=== PATIENT | male | born 1940 | race Caucasian/White ===

== ENCOUNTER 2020-06-08 10:07 | Outpatient (REF) | payer MEDICARE, SELFPAY | END 2020-06-08 10:08 | disposition home or self-care (01) | LOC: HO.LAB 10:07 | PROVIDERS: PCP Internal Medicine; Visit Provider Internal Medicine | DX: Z20.822 Contact with and (suspected) exposure to COVID-19 (principal) | CPT/HCPCS: 36415; C9803; U0003; U0005 ==

== ENCOUNTER → 2022-06-20 10:18 | Outpatient (BNVA) | payer SELFPAY | PROVIDERS: PCP Internal Medicine; Visit Provider Physician Assistant Medical | DX: Z02.79 Encounter for issue of other medical certificate (principal) ==

== ENCOUNTER 2023-06-21 19:30 | Emergency (ER) | payer MEDICARE, SELFPAY ==
--- NOTE | ~2023-06-21 | CT_ITS ---
EXAMINATION: CT ANGIOGRAM OF THE CHEST WITH AND WITHOUT CONTRAST (CT PULMONARY ANGIOGRAM FOR PE) CLINICAL INFORMATION: Reason for Exam Syncope, elevated D-dimer, R/O PE COMPARISON: None available. TECHNIQUE: Prior to contrast administration, noncontrast localization images were obtained. Subsequently, multidetector volumetric imaging was performed from the thoracic inlet to below the diaphragms following the administration of 80 mL Omnipaque 350 intravenous contrast. No contrast reaction reported Sagittal, coronal, and MIP oblique sagittal reformatted images were obtained on the CT workstation, uploaded to PACS, and reviewed. This CT examination was performed using dose optimization techniques as appropriate, variously including the following: *Automated exposure control *Adjustment of mA and/or kV according to patient size (this includes techniques or standardized protocols for targeted exams where dose is matched to indication/reason for exam; i.e. extremities or head) *Use of iterative reconstruction technique Total exam dose-length product 295 mGy-cm FINDINGS: QUALITY OF STUDY/CONTRAST BOLUS: Satisfactory. PULMONARY ARTERIES: No pulmonary emboli. THORACIC AORTA: No aneurysm. LUNG: There is mild emphysematous changes of both lungs without any acute pneumonic process. Mild atelectatic changes seen in both lung bases. PLEURA: No pleural effusion or pneumothorax. MEDIASTINUM: Normal heart size. No pericardial effusion. No hilar or mediastinal lymphadenopathy. No evidence of septal bowing or right heart strain. CORONARY ARTERY CALCIFICATION: None visualized on this study. CHEST WALL/AXILLA: No axillary or internal mammary lymphadenopathy. OSSEOUS STRUCTURES: Mild degenerative disc changes with ventral spondylosis in mid and lower dorsal spine. No aggressive lytic or sclerotic process seen. UPPER ABDOMEN: Visualized liver, spleen appears unremarkable. No reflux of contrast into the hepatic veins to suggest elevated right heart pressures. CT/CT angio chest PE protocol IMPRESSION: 1. No evidence of PE. 2. No evidence of aortic aneurysm. 3. Mild emphysematous changes in both lungs with bibasilar atelectasis. 4. VTE: negative.
--- NOTE | ~2023-06-21 | CT_ITS ---
EXAMINATION: CT HEAD WITHOUT CONTRAST CLINICAL INFORMATION: Syncope. Head injury. COMPARISON: None. TECHNIQUE: Contiguous axial imaging was performed from the skullbase to vertex without intravenous administration of contrast. This CT examination was performed using dose optimization techniques as appropriate, variously including the following: *Automated exposure control *Adjustment of mA and/or kV according to patient size (this includes techniques or standardized protocols for targeted exams where dose is matched to indication/reason for exam; i.e. extremities or head) *Use of iterative reconstruction technique DLP: 738 mGy-cm. FINDINGS: There is no evidence of acute intracranial hemorrhage or territorial infarction. No abnormal mass effect or midline shift is seen. Holguin to white matter differentiation is well preserved. No extra-axial fluid collections are identified. The ventricles are normal in size. Mild chronic white matter microangiopathic changes noted. The osseous structures and soft tissues are normal. The mastoid air cells and visualized portions of the paranasal sinuses are well aerated. CT/CT head/brain wo IV con IMPRESSION: No acute intracranial hemorrhage or territorial infarction.
[2023-06-21 19:44] VITALS: BP 114/59; BP 147/75; PULSE 71; PULSE 73; RESP 18; TEMP 36.8; O2SAT 98; BMI 29.3
--- NOTE | 2023-06-21 19:54 | ECG_ITS ---
Test Reason : SYNCOPE Blood Pressure : / mmHG Vent. Rate : 075 BPM Atrial Rate : 075 BPM P-R Int : 166 ms QRS Dur : 074 ms QT Int : 380 ms P-R-T Axes : 026 049 051 degrees QTc Int : 424 ms Normal sinus rhythm Low voltage QRS Borderline ECG When compared with ECG of 21-OCT-2019 07:48, No significant change was found Referred By: Mj Lopez Electronically Signed By:Donald Johnson
[2023-06-21 20:05] LABS: MANUAL DIFF FLAG NO
[2023-06-21 20:07] LABS: Basophils Percent Auto 0.4 % (0-2); Eosinophils Absolute Auto 0.3 X10*3/uL (0.0-0.4); Eosinophils Percent Auto 2.9 % (0-4); Hematocrit 49.5 % (42.0-52.0); Hemoglobin 16.7 g/dl (14.0-18.0); Imm Gran Abs Auto 0.05 X10*3/uL (0.00-0.03); Imm Gran Pct Auto 0.5 % (0.0-0.4); Lymphocytes Absolute Auto 0.6 X10*3/uL (1.2-4.9); Lymphocytes Percent Auto 5.9 % (20-40); Mean Corpuscular HGB Conc 33.7 g/dl (31.0-36.0); Mean Corpuscular Hemoglobin 28.5 pg (27.0-33.0); Mean Corpuscular Volume 84.6 fL (80.0-98.0); Mean Platelet Volume 8.8 fL (9.4-12.4); Monocytes Absolute Auto 0.8 X10*3/uL (0.1-1.2); Monocytes Percent Auto 7.4 % (2-11); Neutrophils Absolute Auto 8.6 x10*3/uL (2.0-8.3); Neutrophils Percent Auto 82.9 % (45-73); Platelet Count 196 X10*3/uL (160-400); Red Blood Count 5.85 X10*6/uL (4.60-5.80); Red Cell Distribution Width 12.6 % (11.0-16.0); White Blood Count 10.4 X10*3/uL (4.8-10.8)
[2023-06-21 20:18] VITALS: PULSE 71; O2SAT 98
--- NOTE | 2023-06-21 20:18 | ED_ITS ---
HPI - Syncope General Chief Complaint: Syncope Stated Complaint: Near Syncopal Episode Time Seen by Provider: 06/21/23 19:39 Source: patient Mode of arrival: EMS Limitations: no limitations History of Present Illness HPI narrative: 82-year-old male with no significant past medical history who presents emergency department for evaluation of a syncopal episode. Patient states that he had no food or fluid to drink all day. He was at dinner and states that he was eating food when he started to have a warm sensation at 1 point his noted that the patient was staring off into space and not talking. His head started vomiting and he struck the table with his head and the states that his head bounced several times on the table. Started to tip over in his chair and bystanders and by in standard as needed hold him in his chair to prevent him from falling. The states that the entire episode lasted approximately 10 minutes and occurred at around 18:45 hours. The patient has no memory of passing out. Three had an episode where he was staring off into space without. She states that he was seen at [facility] and spent several hours in the emergency department and was then discharged home. The states that he did not have any follow-up with a hot metal mixer operator or neurologist and did not have any further episodes until today. Patient denied being ill in any way recently. He denied fever, chills, rhinorrhea, sore throat, chest pain, shortness of breath or dyspnea on exertion. States that he was skiing in [facility] [facility] and has been home for approximately 1 1/2 weeks. He states that while he was skiing, he did fall once and did injure his left chest but the pain is significantly better in his resolved. He states that he was walking with his family over the last several days and did have some pain in his right leg which has resolved. He has not had any pain or swelling in his lower extremities. Related Data Allergies Allergy/AdvReac Type Severity Reaction Status Date / Time No Known Allergies Allergy Unverified 01/23/20 15:09 [No Known Allergies*] Review of Systems 2 Review of Systems: Yes all other systems are reviewed and are negative [facility] Past Medical History [facility] Narrative: Social history: He denies tobacco use. He does drink alcohol occasionally he states that he had 1 drink earlier today but no drinks with dinner . He denied drug use. Social History Social History Advance Directives: No Advance Directives Information Provided: No Physical Exam 2 Vital Signs: Vital Signs: Last Vital Signs Temp 98.3 F 06/21/23 19:44 Pulse 82 06/21/23 20:30 Resp 18 06/21/23 19:44 BP 101/65 06/21/23 20:30 Pulse Ox 98 06/21/23 20:18 O2 Del Method Room Air 06/21/23 20:18 BMI result Body Mass Index 29.3 Vital signs were normal. Orthostatic vital signs were normal as well pain Exam General: Awake, alert in no distress Head: Normocephalic, patient has a area of ecchymosis on his forehead and nose from striking the table, these areas are nontender EENT: PERRL, Lids normal, sclera normal, conjunctiva normal, nose normal , ears normal, throat without erythema or exudates Neck: Supple, no adenopathy Lung: breath sounds symmetric, no wheezing, rales or rhonchi Chest: symmetric movement, nontender Heart: regular rate and rhythm, normal S1, S2 no murmurs or rubs Abdomen: soft, non-tender, nondistended, normal bowel sounds Back: no vertebral tenderness, no CVAT Extremities: no deformities, moves all extremities symmetrically. Extremities appear to be symmetric in size with no tenderness palpation over his calf muscles or by muscles. Neuro: Awake, alert, oriented, normal speech, cranial nerves intact, moves all extremities symmetrically Psych: Pleasant, cooperative Medications Administered Discontinued Medications Generic Name Dose Route Start Last Admin Trade Name Jaqui PRN Reason Stop Dose Admin Sodium Chloride 1,000 mls @ 999 mls/hr 06/21/23 20:18 06/21/23 20:31 Ns IV 06/21/23 21:18 999 mls/hr .Q1H1M STA Administration Iohexol 65 ml 06/21/23 22:44 06/21/23 22:45 Iohexol 350 Mg/Ml 100 Ml Infus..Btl IV 06/21/23 22:45 65 ml ONCE ONE Administration Medical Decision Making Medical Decision Making MDM Narrative: 82-year-old male with no significant past medical history who presents emergency department for evaluation of syncopal episode that occurred while he was eating dinner. states the patient was initially staring off into space and then his head dropped to the table and bobbed several times on the table. Patient was then tipping over and needed to be supported in his tear to prevent him from falling out of the chair. Patient states he did feel warm and dizzy prior to his syncopal episode but does not recall any details of the syncope. states that in March of 2023 at an episode where he was staring off into space was seen at [facility] in the emergency department but did not have any further workup after the event. Patient was recently skiing in [place] [facility] [facility] 2 weeks prior and did fall and injure his left chest but he states that the pain is resolved. Patient did complain of right lower extremity pain while he was walking with family but this is also resolved. Vital signs were normal, the patient was not orthostatic. Physical examination was unremarkable except for evidence of facial trauma from striking his head on the table. Differential diagnosis: Includes was not limited to Mart arrhythmia, tachyarrhythmia, vasovagal syncope, seizure, pulmonary embolism, electrolyte abnormality, anemia, alcohol intoxication Following evaluation was ordered: CBC, CMP, troponin, D-dimer, PTT, PT/INR, ethanol level, drug screen, CT scan of the head without IV contrast. 22:29 My interpretation patient's laboratory evaluation is as follows: CBC was normal. CMP was normal except for an elevated BUN of 19 elevated creatinine of 118. Troponin less than 2.7. Ethanol was not detected. Urinalysis and urine drug screen pending. D-dimer was elevated at 495 Twelve EKG was unremarkable CT scan of the brain was unremarkable Given the elevated D-dimer I will get a CT pulmonary angiogram PE protocol to rule out PE as a possible cause of his syncope I will also repeated 3 hour troponin at 23:00 hours At the end of my shift, the patient's care was turned over to my colleague, Dr. Everardo Hendrix Admission/Observation Consideration of admission/observation: Escalation of care including admission/observation considered Lab Data MDM Lab Attestation statement: I reviewed the patient's lab results. 06/21/23 20:00 06/21/23 20:00 Labs: Lab Results 06/21/23 06/21/23 Range/Units 20:00 20:30 WBC 10.4 (4.8-10.8) X10*3/uL RBC 5.85 H (4.60-5.80) X10*6/uL Hgb 16.7 (14.0-18.0) g/dl Hct 49.5 (42.0-52.0) % MCV 84.6 (80.0-98.0) fL MCH 28.5 (27.0-33.0) pg MCHC 33.7 (31.0-36.0) g/dl RDW 12.6 (11.0-16.0) % Plt Count 196 (160-400) X10*3/uL MPV 8.8 L (9.4-12.4) fL Immature Gran % (Auto) 0.5 H (0.0-0.4) % Neut % (Auto) 82.9 H (45-73) % Lymph % (Auto) 5.9 L (20-40) % Maury % (Auto) 7.4 (2-11) % Eos % (Auto) 2.9 (0-4) % Baso % (Auto) 0.4 (0-2) % Lymph # (Auto) 0.6 L (1.2-4.9) X10*3/uL Maury # (Auto) 0.8 (0.1-1.2) X10*3/uL Eos # (Auto) 0.3 (0.0-0.4) X10*3/uL Baso # (Auto) 0.0 (0.0-0.2) X10*3/uL Abs Immat Gran (auto) 0.05 H (0.00-0.03) X10*3/uL Absolute Neuts (auto) 8.6 H (2.0-8.3) x10*3/uL Absolute Nucleated RBC 0.000 (0.0-0.012) X10*3/uL Nucleated RBC % (auto) 0.0 (0.0-0.2) /100WBC PT 11.8 (11.1-13.3) SEC INR 1.0 (0.9-1.1) APTT 28.1 (26.0-36.8) SEC D-Dimer High Sensitivty 495 NG/ML Sodium 141 (135-145) mmol/L Potassium 4.3 (3.3-5.1) mmol/L Chloride 107 (96-108) mmol/L Carbon Dioxide 26 (22-29) mmol/L Anion Gap 12 (12-20) BUN 19 H (9-16) mg/dL Creatinine 1.02 (0.5-1.4) mg/dL Estim Creat Clear Calc 68.8 Estimated GFR > 60 Random Glucose 118 H (60-115) mg/dL Calcium 9.1 (8.4-10.2) mg/dL Total Bilirubin 0.6 (0.0-1.0) mg/dL AST 21 (5-37) U/L ALT 20 (0-40) U/L Alkaline Phosphatase 69 (39-117) U/L Troponin I High Sens < 2.7 (<3.5-35.0) ng/L Total Protein 7.1 (6.5-8.0) g/dL Albumin 3.8 (3.5-5.0) g/dL Ethyl Alcohol < 10 mg/dL Independent Interpretation I performed an independent interpretation of an: EKG Interpretation: My interpretation patient's 12 EKG done at 19:59 hours is as follows: Sinus rhythm rate of 75, normal MD interval, QRS duration QTC interval, no ST segment elevation, no ST segment depression, no significant T-wave abnormalities, Q-wave in V1, no PACs, no PVCs. Radiology Impression Discussion of test interpretation with radiology: I have reviewed the radiologist's reading. Radiologist Impression: CT head/brain wo IV con IMPRESSION: No acute intracranial hemorrhage or territorial infarction. Dictated By: SAMUEL BURNS MD Independent Historian Clinical information obtained from an independent historian. History obtained from or confirmed by: Spouse Critical Care Time Critical Care Time Critical Care Time: Yes Total Critical Care Time: 35 Attestation: Critical Care: The patient was critically ill with a high probability of imminent or life threatening deterioration. I spent greater than 30 minutes of discontinuous time evaluating the patient,delivering critical care at the bedside, discussing and evaluating pertinent data with consultants. Critical care time does not include time spent performing separately billable procedures or teaching. Total time spent performing critical care was 35 minutes. Discharge Plan Discharge Clinical Impression: Syncope Patient Disposition: Still a Patient
[2023-06-21 20:21] LABS: Alanine Aminotransferase 20 U/L (0-40); Albumin Level 3.8 g/dL (3.5-5.0); Alkaline Phosphatase 69 U/L (39-117); Anion Gap 12 (12-20); Aspartate Amino Transferase 21 U/L (5-37); Bilirubin Total 0.6 mg/dL (0.0-1.0); Blood Urea Nitrogen 19 mg/dL (9-16); Calcium 9.1 mg/dL (8.4-10.2); Carbon Dioxide 26 mmol/L (22-29); Chloride 107 mmol/L (96-108); Creatinine Clr Calc Pharmacy 68.8; Estimated Glomerular Filt Rate > 60; Glucose Random 118 mg/dL (60-115); Potassium 4.3 mmol/L (3.3-5.1); Sodium 141 mmol/L (135-145); Total Protein 7.1 g/dL (6.5-8.0)
[2023-06-21 20:28] VITALS: BP 104/65; BP 114/64; PULSE 68; PULSE 70
[2023-06-21 20:29] LABS: Troponin-I High Sensitivity < 2.7 ng/L (<3.5-35.0)
[2023-06-21 20:30] VITALS: BP 101/65; PULSE 82
[2023-06-21] MEDS: 0.9 % Sodium Chloride 1,000 ML 999 ML IV (20:31)
[2023-06-21 20:43] LABS: Prothrombin Time 11.8 SEC (11.1-13.3)
[2023-06-21 20:45] LABS: D Dimer High Sensitivity 495 NG/ML
[2023-06-21 20:46] LABS: Partial Thromboplastin Time 28.1 SEC (26.0-36.8)
[2023-06-21 20:48] LABS: Ethanol < 10 mg/dL
[2023-06-21] MEDS: iohexoL 350 MG/ML 100 ML INFUS..BTL 65 ML IV (22:45)
[2023-06-21 22:56] VITALS: BP 139/64; PULSE 83; RESP 15; TEMP 37.1; O2SAT 98
[2023-06-21 23:35] LABS: Troponin-I High Sensitivity < 2.7 ng/L (<3.5-35.0)
[2023-06-21 23:45] VITALS: BP 112/76; PULSE 84; RESP 16; TEMP 37.1; O2SAT 96
[2023-06-22] MEDS: Magnesium Hydrox/Alum Hydrox 30 ML ORAL.SUSP PO (01:13)
[2023-06-22] MEDS: Pantoprazole Sodium 40 MG/10 ML VIAL IVPUSH (01:31)
[2023-06-22 01:40] VITALS: BP 121/64; PULSE 69; RESP 16; TEMP 36.7; O2SAT 97
== END 2023-06-22 01:42 | disposition home or self-care (01) ==
PROVIDERS: Emergency Medicine Emergency Medical Services; Emergency Provider Emergency Medicine; PCP Internal Medicine
DX: R55 Syncope and collapse (principal); R10.9 Unspecified abdominal pain
CPT/HCPCS: 36415; 70450; 71275; 80053; 80307; 84484; 85025; 85379; 85610; 85730; 93005; 96361; 96374; 99284; 99285; C9113; Q9967

== ENCOUNTER → 2023-06-21 19:54 | Outpatient (BNV) | payer MEDICARE, SELFPAY | PROVIDERS: Emergency Provider Emergency Medicine; PCP Internal Medicine; Visit Provider Internal Medicine Cardiovascular Disease | DX: R94.31 Abnormal electrocardiogram [ECG] [EKG] (principal) | CPT/HCPCS: 93010 ==